=== PATIENT | female | born 1965 | race Caucasian/White ===

== ENCOUNTER → 2022-12-08 09:52 | Outpatient (CLI) | payer OTHER, SELFPAY ==
[2022-12-08 11:02] LABS: Add Manual Diff / Slide Review NO; Basophils Absolute Auto 100 /uL (0-100); Basophils Percent Auto 0.7 % (0-2); Eosinophils Absolute Auto 100 /uL (0-450); Eosinophils Percent Auto 1.5 % (2-4); Hemoglobin 13.7 g/dL (12.0-16.0); Lymphocytes Absolute Auto 1800 /uL (1100-4500); Lymphocytes Percent Auto 21.4 % (25-40); Mean Corpuscular HGB Conc 34.3 % (30-36); Mean Corpuscular Hemoglobin 29.4 PG (26-34); Mean Corpuscular Volume 85.9 fL (80-100); Monocytes Absolute Auto 600 /uL (0-900); Monocytes Percent Auto 7.1 % (3-14); Neutrophils Absolute Auto 5900 /uL (1500-7000); Neutrophils Percent Auto 69.3 % (50-75); Platelet Count 293 X10^3/uL (150-400); Red Blood Cell Count 4.66 X10^6/uL (4.0-5.2); White Blood Cell Count 8.5 X10^3/uL (4.5-11.0)
[2022-12-08 11:11] LABS: Alanine Aminotransferase 21 IU/L (<35); Albumin 4.3 g/dL (3.5-5.0); Albumin Globulin Ratio 1.3 (1.0-2.8); Alkaline Phosphatase 88 U/L (38-126); Aspartate Aminotransferase 24 IU/L (14-36); BUN Creatinine Ratio 15.1 (6-22); Bilirubin Total 0.9 mg/dL (0.2-1.3); Blood Urea Nitrogen 16 mg/dL (7-17); Calcium 9.5 mg/dL (8.4-10.2); Carbon Dioxide 29 mmol/L (22-32); Chloride 103 mmol/L (98-107); Cholesterol 198 mg/dL (140-199); Estimated Glomerular Filt Rate > 60 mL/min (>60); Globulin 3.2 g/dL (1.7-4.1); Glucose 113 mg/dL (70-100); HDL Cholesterol 43 mg/dL (40-60); HEMOLYSIS < 15 (0-50); LDL Cholesterol Calculated 110 mg/dL (<100); Potassium 4.6 mmol/L (3.4-5.1); Sodium 137 mmol/L (137-145); Total Protein 7.5 g/dL (6.3-8.2); Triglycerides 225 mg/dL (35-150)
[2022-12-08 11:40] LABS: TSH w/ Reflex to FT4 0.76 uIU/mL (0.47-4.68)
[2022-12-09 05:50] LABS: x Labcorp Estim. Avg Glu (eAG) 128 mg/dL (.); x Labcorp Hemoglobin A1c 6.1 % (4.8-5.6)
== END ==
PROVIDERS: PCP Family Medicine; Referring Provider Family Medicine; Visit Provider Family Medicine
DX: Z00.00 Encounter for general adult medical examination without abnormal findings (principal); E78.5 Hyperlipidemia, unspecified; R73.03 Prediabetes
CPT/HCPCS: 36415; 80053; 80061; 83036; 84443; 85025

== ENCOUNTER → 2022-12-15 12:20 | Outpatient (CLI) | payer OTHER, SELFPAY | PROVIDERS: PCP Family Medicine; Visit Provider Nurse Practitioner Family | DX: R30.0 Dysuria (principal) | CPT/HCPCS: 87086 ==

== ENCOUNTER → 2023-01-20 09:34 | Outpatient (CLI) | payer OTHER, SELFPAY | PROVIDERS: PCP Family Medicine; Visit Provider Physician Assistant | DX: R10.9 Unspecified abdominal pain (principal) | CPT/HCPCS: 87086 ==

== ENCOUNTER → 2023-03-16 07:46 | Outpatient (CLI) | payer OTHER, SELFPAY ==
[2023-03-16 09:14] LABS: Add Manual Diff / Slide Review NO; Basophils Absolute Auto 100 /uL (0-100); Basophils Percent Auto 0.9 % (0-2); Eosinophils Absolute Auto 100 /uL (0-450); Eosinophils Percent Auto 2.2 % (2-4); Hematocrit 40.6 % (36-46); Hemoglobin 13.5 g/dL (12.0-16.0); Lymphocytes Absolute Auto 2000 /uL (1100-4500); Lymphocytes Percent Auto 30.5 % (25-40); Mean Corpuscular HGB Conc 33.4 % (30-36); Mean Corpuscular Hemoglobin 29.3 PG (26-34); Mean Corpuscular Volume 87.8 fL (80-100); Monocytes Absolute Auto 500 /uL (0-900); Monocytes Percent Auto 8.5 % (3-14); Neutrophils Absolute Auto 3700 /uL (1500-7000); Neutrophils Percent Auto 57.9 % (50-75); Platelet Count 308 X10^3/uL (150-400); Red Blood Cell Count 4.63 X10^6/uL (4.0-5.2); Red Cell Distribution Width 13.6 % (11.6-14.8); White Blood Cell Count 6.4 X10^3/uL (4.5-11.0)
[2023-03-16 09:26] LABS: Hemoglobin A1C% w Est Avg Glu 6.3 % (4.0-6.0)
[2023-03-16 09:42] LABS: Alanine Aminotransferase 20 IU/L (<35); Albumin 4.3 g/dL (3.5-5.0); Albumin Globulin Ratio 1.6 (1.0-2.8); Alkaline Phosphatase 84 U/L (38-126); Aspartate Aminotransferase 25 IU/L (14-36); BUN Creatinine Ratio 13.1 (6-22); Bilirubin Total 0.9 mg/dL (0.2-1.3); Blood Urea Nitrogen 14 mg/dL (7-17); Calcium 9.6 mg/dL (8.4-10.2); Carbon Dioxide 24 mmol/L (22-32); Chloride 103 mmol/L (98-107); Cholesterol 195 mg/dL (140-199); Estimated Glomerular Filt Rate > 60 mL/min (>60); Globulin 2.7 g/dL (1.7-4.1); Glucose 120 mg/dL (70-100); HDL Cholesterol 42 mg/dL (40-60); HEMOLYSIS < 15 (0-50); LDL Cholesterol Calculated 105 mg/dL (<100); Potassium 4.6 mmol/L (3.4-5.1); Sodium 136 mmol/L (137-145); Triglycerides 240 mg/dL (35-150)
[2023-03-16 10:06] LABS: Thyroid Stimulating Hormone 1.14 uIU/mL (0.47-4.68)
== END ==
PROVIDERS: PCP Family Medicine; Referring Provider Family Medicine; Visit Provider Family Medicine
DX: E78.5 Hyperlipidemia, unspecified (principal); R73.03 Prediabetes; E04.1 Nontoxic single thyroid nodule; N28.9 Disorder of kidney and ureter, unspecified
CPT/HCPCS: 36415; 80053; 80061; 83036; 84443; 85025

== ENCOUNTER → 2023-03-19 11:14 | Outpatient (CLI) | payer OTHER, SELFPAY ==
--- NOTE | 2023-03-19 | DI.MG.S_ITS ---
BILATERAL DIGITAL SCREENING MAMMOGRAM 3D/2D WITH CAD: 03/19/2023 CLINICAL: Routine screening. Family history of breast cancer. No prior exams were available for comparison. There are scattered areas of fibroglandular density in both breasts (category b / 25%-50% glandular tissue). Current study was also evaluated with a Computer Aided Detection (CAD) system. No significant masses, calcifications, or other findings are seen in either breast. IMPRESSION: NEGATIVE There is no mammographic evidence of malignancy. A 1 year screening mammogram is recommended. Based on the Tyrer Cuzick model (a risk assessment model) the patient's lifetime risk is 11.8% and her 10 year risk is 4.4%. According to the ACR, ACS, and NCCN guidelines, an annual breast MRI exam along with mammogram is recommended if the patient's lifetime risk is 20% or greater. This exam was interpreted at Station ID: [id number]. NOTE: For mammograms, a report in lay terms will be sent to the patient. Approximately 15% of breast malignancies will not be visualized mammographically. In the management of a palpable breast mass, a negative mammogram must not discourage biopsy of a clinically suspicious lesion. Electronically Signed By: Doug dugan/chava:03/19/2023 14:07:34 letter sent: Normal Exam ACR BI-RADS Category 1: Negative 3341F
== END ==
PROVIDERS: PCP Family Medicine; Referring Provider Family Medicine; Visit Provider Family Medicine
DX: Z12.31 Encounter for screening mammogram for malignant neoplasm of breast (principal); Z80.3 Family history of malignant neoplasm of breast
CPT/HCPCS: 77063; 77067

== ENCOUNTER → 2024-04-21 07:07 | Outpatient (CLI) | payer OTHER, SELFPAY ==
[2024-04-21 07:51] LABS: Add Manual Diff / Slide Review NO; Basophils Absolute Auto 100 /uL (0-100); Basophils Percent Auto 1.2 % (0-2); Eosinophils Absolute Auto 100 /uL (0-450); Eosinophils Percent Auto 1.7 % (2-4); Hematocrit 43.3 % (36-46); Hemoglobin 14.2 g/dL (12.0-16.0); Lymphocytes Absolute Auto 2200 /uL (1100-4500); Lymphocytes Percent Auto 33.6 % (25-40); Mean Corpuscular HGB Conc 32.8 % (30-36); Mean Corpuscular Hemoglobin 29.2 PG (26-34); Mean Corpuscular Volume 88.9 fL (80-100); Monocytes Absolute Auto 500 /uL (0-900); Monocytes Percent Auto 7.7 % (3-14); Neutrophils Absolute Auto 3700 /uL (1500-7000); Neutrophils Percent Auto 55.8 % (50-75); Platelet Count 319 X10^3/uL (150-400); Red Blood Cell Count 4.87 X10^6/uL (4.0-5.2); Red Cell Distribution Width 13.2 % (11.6-14.8); White Blood Cell Count 6.6 X10^3/uL (4.5-11.0)
[2024-04-21 08:17] LABS: Alanine Aminotransferase 23 IU/L (<35); Albumin 4.4 g/dL (3.5-5.0); Albumin Globulin Ratio 1.7 (1.0-2.8); Alkaline Phosphatase 83 U/L (38-126); Aspartate Aminotransferase 28 IU/L (14-36); BUN Creatinine Ratio 16.1 (6-22); Bilirubin Total 0.8 mg/dL (0.2-1.3); Blood Urea Nitrogen 19 mg/dL (7-17); Calcium 9.4 mg/dL (8.4-10.2); Carbon Dioxide 25 mmol/L (22-32); Chloride 104 mmol/L (98-107); Cholesterol 207 mg/dL (140-199); Estimated Glomerular Filt Rate 53 mL/min (>60); Globulin 2.6 g/dL (1.7-4.1); Glucose 121 mg/dL (80-110); HDL Cholesterol 43 mg/dL (40-60); HEMOLYSIS < 15 (0-50); LDL Cholesterol Calculated 125 mg/dL (<100); Potassium 4.4 mmol/L (3.4-5.1); Sodium 138 mmol/L (137-145); Triglycerides 194 mg/dL (35-150)
[2024-04-21 08:20] LABS: Hemoglobin A1C% w Est Avg Glu 5.8 % (4.0-6.0)
[2024-04-21 08:43] LABS: TSH w/ Reflex to FT4 1.06 uIU/mL (0.47-4.68)
== END ==
PROVIDERS: PCP Family Medicine; Referring Provider Family Medicine; Visit Provider Family Medicine
DX: Z00.00 Encounter for general adult medical examination without abnormal findings (principal); R73.03 Prediabetes; E78.00 Pure hypercholesterolemia, unspecified
CPT/HCPCS: 36415; 80053; 80061; 83036; 84443; 85025

== ENCOUNTER 2024-06-24 08:14 | Day surgery (SDC) | payer OTHER, SELFPAY ==
[2024-06-24] MEDS: LACTATED RINGERS 1,000 ML 100 ML IV (08:43)
[2024-06-24 08:52] VITALS: BP 130/82; PULSE 68; RESP 18; TEMP 36.4; O2SAT 99
--- NOTE | 2024-06-24 09:10 | PM.HP.IH.1 ---
History of Present Illness History of Present Illness Date Patient Seen: 06/24/24 Time Patient Seen: 09:10 Chief complaint: SDC Narrative: 59-year-old white female shows up for subsequent colonoscopy. No previous polyps FORMERLY [facility], [facility]–1983 Medical History (Updated 06/24/24 @ 09:11 by Dinh Mejias MD) Colon cancer screening Mucoid cyst of joint Encounter for well adult exam without abnormal findings Renal insufficiency Pre-diabetes Shoulder pain (~2012) Chronic back pain (~1983) Chicken pox Abnormal Pap smear of cervix (~1997) Kidney stones (~2019) Thyroid nodule (~1982) Hyperlipidemia Surgical History Anesthesia H/O nephrolithotomy with removal of calculi (~02/2020) Family History Father Skin cancer Prostate cancer Diabetes mellitus Hypertension Hyperlipidemia Mother Balance problem Brother Hyperlipidemia Grandfather Mental health problem Grandmother Diabetes mellitus Grandfather Alcoholic Liver disorder Grandmother History of heart disease Social History Smoking Status: Never smoker alcohol intake: current Meds Home Medications and Allergies Home Medications Medication Instructions Recorded Confirmed Type progesterone micronized 100 mg 100 mg PO DAILY Manage menopause 06/09/24 Rx capsule symtoms #90 caps eszopiclone 1 mg tablet (Lunesta) 2 mg (2 x 1 mg) PO BEDTIME PRN 06/10/24 Rx sleep #60 tabs metformin 500 mg tablet 500 mg PO DAILY Manage A1C #90 tabs 06/10/24 Rx simvastatin 20 mg tablet 20 mg PO DAILY High Cholesteral 06/10/24 Rx #90 tabs sodium,potassium,mag sulfates 17.5 See Rx Instructions PO .COMPLEX 06/17/24 Rx gram-3.13 gram-1.6 gram oral soln #354 mL (Suprep Bowel Prep Kit) Allergies Allergy/AdvReac Type Severity Reaction Status Date / Time No Known Drug Allergies Allergy Verified 06/24/24 09:09 Review of Systems Review of Systems ROS: Yes All systems reviewed with the patient and are negative except as otherwise documented Exam Vital Signs (past 8 hours): - 06/24/24 08:52 Temperature 97.5 F L Pulse Rate 68 Respiratory Rate 18 Blood Pressure 130/82 Pulse Oximetry 99 Oxygen Delivery Method Room Air Oxygen Delivery Method Room Air Narrative Exam Narrative: Gen: NAD, sitting comfortably in bed, appears well HEENT: Sclera are anicteric, head is normocephalic and atraumatic, trachea is midline. CV: RRR, no JVD Resp: clear to auscultation bilaterally, equal chest wall movement bilaterally Abd: soft, nontender, normoactive bowel sounds Ext: no edema, full range of motion Neuro: Cranial nerves II-XII grossly intact, no focal deficits Skin: No erythema or ecchymosis Assessment & Plan Assessment and plan (1) Colon cancer screening: Status: Acute Assessment & Plan narrative: Patient presents for colonoscopy Risks, benefits, alternatives to colonoscopy explained, including but not limited to bowel perforation or other serious complication requiring surgery at less than 1 in 5000 colonoscopies, abdominal pain, cramping or bleeding and less than 1% of colonoscopies, and the chances that we find a diagnosis that would require further intervention of about 2%. Patient agrees to proceed. Time-Based Coding :: [TOTAL MINUTES] spent with patient and on the chart (including review of chart, obtaining history, exam, reviewing outside data, placing orders, documenting exam and treatment plan, and counseling patient) on [DATE]. PROFEE Daytime Caregiver Document charge(s): No
--- NOTE | 2024-06-24 09:30 | P.OP.COLON_ITS ---
Operative Date/Time/Diagnoses Date of procedure: 06/24/24 Time of procedure: 09:30 Pre-op diagnosis: Colon screening Post-op diagnosis: same Procedure & Clinicians Study performed: Colonoscopy Same procedure as scheduled: Yes Indications: Colon screening Surgeon: iDnh Mejias Procedure Notes SCOAP/Timeout: Performed Procedure in detail: Time-out was performed. Mac was induced. Patient was placed in left lateral d ecubitus position. The perineum was inspected without any gross abnormality. Lubricated pediatric colonoscope was inserted and advanced to the cecum. The terminal ileum was intubated. The colonoscope was withdrawn slowly inspecting the circumference of the colon. Very small polyps may have been missed, prep quality was adequate. Retroflexed view of the rectum showed small, non prolapsed nonbleeding internal hemorrhoids. The scope was withdrawn the patient was taken to PACU in good condition. Scope withdrawal time: 6 Sedation minutes: 13 Specimen(s): none sent Complications: none Post-procedure Recommendations: Colonoscopy in 10 years Follow up: as needed Disposition: PACU
[2024-06-24 09:32] VITALS: BP 102/64; PULSE 70; RESP 14; TEMP 36.3; O2SAT 96
[2024-06-24 09:38] VITALS: BP 121/61; PULSE 70; RESP 14; O2SAT 96
[2024-06-24 09:42] VITALS: BP 102/77; PULSE 64; PULSE 66; RESP 12; RESP 16; O2SAT 97
[2024-06-24 09:48] VITALS: BP 101/74; PULSE 65; RESP 12; O2SAT 97
== END 2024-06-24 10:00 | disposition home or self-care (01) ==
PROVIDERS: PCP Family Medicine; Referring Provider Surgery; Visit Provider Surgery
PROC: 0DJD8ZZ Inspection of Lower Intestinal Tract, Via Natural or Artificial Opening Endoscopic (ICD-10-PCS; CPT 45378; principal; 2024-06-24 09:15)
DX: Z12.11 Encounter for screening for malignant neoplasm of colon (principal); K64.8 Other hemorrhoids
CPT/HCPCS: 45378; J2704